=== PATIENT | male | born 1985 | race Caucasian/White ===

== ENCOUNTER 2019-04-22 13:15 | Emergency (ER) | payer SELFPAY ==
[~2019-04-22] VITALS: Ht 170.2 cm; Wt 93.7 kg
[2019-04-22 13:21] VITALS: BP 187/124
== END 2019-04-22 13:56 | disposition left against medical advice (07) ==
LOC: ED 13:50
DX: R06.00 Dyspnea, unspecified (principal); I10 Essential (primary) hypertension
CPT/HCPCS: 93005; 99283